=== PATIENT | female | born 1995 | race Hispanic/Latino ===

== ENCOUNTER → 2021-04-28 16:57 | Outpatient (CLI) | payer OTHER, SELFPAY ==
--- NOTE | 2021-04-28 17:02 | DI.MRI.S_ITS ---
PROCEDURE: MR HEAD/BRAIN WO CON INDICATIONS: MIGRAINE WITHOUT AURA,NOT INTRACTABLE TECHNIQUE: Noncontrast axial T1 spin echo, axial T2 fast spin echo, sagittal and axial FLAIR, coronal T2 fast spin echo, axial gradient echo, axial diffusion and ADC through the brain. COMPARISON: None. FINDINGS: Image quality: Dental hardware creates susceptibility artifact limiting assessment of the skull base and inferior frontal lobes, particularly on gradient sequence. CSF Spaces: Basal cisterns are patent. No extra-axial fluid collections. Ventricles are normal in size and shape. Brain: No intracranial masses or hemorrhage. Granados/white matter interface is normal. Brainstem appears normal. Diffusion-weighted images demonstrate no acute ischemic insult. No chronic ischemic insults. Normal intravascular flow voids are present. Skull and face: Calvarium has normal marrow signal. Orbits appear normal. Sinuses: Sinuses and mastoids are clear. IMPRESSION: Unremarkable MRI of the brain. However, study is limited by dental hardware which degrades multiple images near the skull base and inferior frontal lobes Dictated by: Melchor Sanz M.D. on 04/28/2021 at 16:32 Approved by: Melchor Sanz M.D. on 04/28/2021 at 16:49
== END ==
PROVIDERS: Referring Provider Nurse Practitioner Family; Visit Provider Nurse Practitioner Family
DX: G43.009 Migraine without aura, not intractable, without status migrainosus (principal)
CPT/HCPCS: 70551